=== PATIENT | female | born 1975 | race Caucasian/White ===

== ENCOUNTER 2018-03-30 08:16 | Outpatient (CLI) | payer BC | END 2018-03-30 08:17 | disposition home or self-care (01) | LOC: BICMAMMO 08:16 | PROVIDERS: ATTEND Family Medicine | DX: Z12.31 Encounter for screening mammogram for malignant neoplasm of breast (principal) | CPT/HCPCS: 77063; 77067 ==

== ENCOUNTER 2019-03-31 13:44 | Outpatient (CLI) | payer BC ==
--- NOTE | 2019-03-31 11:40 | MMO ---
Bilateral MAMMO Bilat Screen [facility]. CLINICAL HISTORY: Patient is 44 years old and is seen for screening. The patient has no family history of breast cancer. The patient has no personal history of cancer. VIEWS: The views performed were: bilateral craniocaudal with tomosynthesis and bilateral mediolateral oblique with tomosynthesis. FILMS COMPARED: The present examination has been compared to prior imaging studies performed at [facility] on 02/20/2012 and 03/30/2018. This study has been interpreted with the assistance of computer-aided detection. MAMMOGRAM FINDINGS: There are scattered fibroglandular densities. There is a new asymmetry seen in the lower-inner region of the left breast. In the right breast, there are no suspicious masses, calcifications or areas of architectural distortion. IMPRESSION: NEW ASYMMETRY IN THE LEFT BREAST REQUIRES ADDITIONAL EVALUATION. ADDITIONAL IMAGING. THE RESULTS OF THIS EXAM WERE SENT TO THE PATIENT. ACR BI-RADS Category 0 - Incomplete: Need additional imaging evaluation. [facility] will notify the patient of the need for additional imaging services. MAMMOGRAPHY NOTE: 1. A negative mammogram report should not delay a biopsy if a dominant of clinically suspicious mass is present. 2. Approximately 10% to 15% of breast cancers are not detected by mammography. 3. Adenosis and dense breasts may obscure an underlying neoplasm. Reported by: EILEEN LARSON MD Electonically Signed: [id number]
== END 2019-03-31 13:45 | disposition home or self-care (01) ==
LOC: BICMAMMO 13:44
PROVIDERS: ATTEND Family Medicine
DX: Z12.31 Encounter for screening mammogram for malignant neoplasm of breast (principal); N64.89 Other specified disorders of breast
CPT/HCPCS: 77063; 77067

== ENCOUNTER 2019-04-07 08:34 | Outpatient (CLI) | payer BC ==
--- NOTE | 2019-04-07 09:00 | MMO ---
Left Breast MAMMO Unilat Diag [facility] LT[facility]MARY. CLINICAL HISTORY: Patient is 44 years old and is seen for diagnostic exam. VIEWS: The views performed were: . FILMS COMPARED: The present examination has been compared to prior imaging studies performed at [facility] on 02/20/2012, 03/30/2018 and 03/31/2019. This study has been interpreted with the assistance of computer-aided detection. MAMMOGRAM FINDINGS: There are scattered fibroglandular densities. Additional evaluation was performed for the asymmetry in the left breast, lower-inner seen on 03/31/2019. On the present examination, asymmetry in the left breast, lower-inner does not persist. There are no suspicious masses, suspicious calcifications, or new areas of architectural distortion. IMPRESSION: THERE IS NO MAMMOGRAPHIC EVIDENCE OF MALIGNANCY. THE FINDINGS AND RECOMMENDATIONS WERE DISCUSSED WITH THE PATIENT PRIOR TO HER LEAVING THE CENTER. A ROUTINE FOLLOW-UP MAMMOGRAM IN 1 YEAR IS RECOMMENDED. THE RESULTS OF THIS EXAM WERE SENT TO THE PATIENT. ACR BI-RADS Category 2 - Benign finding MAMMOGRAPHY NOTE: 1. A negative mammogram report should not delay a biopsy if a dominant of clinically suspicious mass is present. 2. Approximately 10% to 15% of breast cancers are not detected by mammography. 3. Adenosis and dense breasts may obscure an underlying neoplasm. Reported by: JANET GARCIA MD Electonically Signed: [id number]
== END 2019-04-07 08:35 | disposition home or self-care (01) ==
LOC: BICMAMMO 08:34
PROVIDERS: ATTEND Family Medicine
DX: R92.2 Inconclusive mammogram (principal)
CPT/HCPCS: G0279

== ENCOUNTER 2020-08-11 09:11 | Outpatient (CLI) | payer BC | END 2020-08-11 09:12 | disposition home or self-care (01) | LOC: BICMAMMO 09:11 | PROVIDERS: ATTEND Family Medicine | DX: Z12.31 Encounter for screening mammogram for malignant neoplasm of breast (principal) | CPT/HCPCS: 77063; 77067 ==